=== PATIENT | female | born 1955 | race Caucasian/White ===

== ENCOUNTER 2016-04-25 23:38 | Inpatient (IN) | payer BC ==
[~2016-04-25] VITALS: Ht 167.6 cm; Wt 82.1 kg
--- NOTE | ~2016-04-25 | DS ---
PATIENT'S NAME: ROSY MAGALLANES [facility] AGE: 60 Y [address] ROOM: [address] [address] LOCATION: [facility] [place] ADMIT DATE: 04/26/2016 Discharge Summary DISCHARGE DATE: 04/30/2016 FAMILY PHYSICIAN: Sierra Burns MD ATTENDING PHYSICIAN: Alexis Ascencio DIAGNOSES: 1. Diverticulitis with perforation and free fluid in the pelvis. 2. History of hypothyroidism. 3. History of hypertension. 4. History of hyperlipidemia. 5. History of depression. SUMMARY: Ms. Rosy Magallanes is a 60-year-old female who presented with a 1-day history of lower abdominal pain. The patient presented to an outside hospital where a CT scan was done. This showed significant free fluid present in the pelvis with free air noted throughout the abdomen, with the largest collection noted in the midline lower abdomen. Pancolonic diverticulosis was present. The distal rectosigmoid colon demonstrated significant surrounding inflammatory stranding with free fluid and large foci of adjacent extraluminal air. The appendix was normal. Incidental cholelithiasis was also noted. The patient was transferred to [facility] where she was initially evaluated by Chiara Coto, General Surgery. She was admitted to the neurotrauma unit where vital signs were checked every hour. She was kept n.p.o. An NG tube was placed to suction. She was kept at bedrest. Lovenox was ordered for DVT prophylaxis. Dilaudid was ordered for pain. Levaquin and Flagyl for antibiotics. On April 27, the patient was doing much better. She was passing some gas and felt less bloated. She was afebrile. White blood cell count was 11.2. The NG tube was removed. She was allowed activity as tolerated. She was started on sips of clear liquids and advanced to clear liquid diet as tolerated. Physical Therapy was consulted for mobility issues with osteoarthritis in the knee. Drexel was ordered for pain control. On April 28, the patient was feeling better, but was nauseated. She was still afebrile. She continued on clear liquids until April 29 when she was advanced to full liquids. The nausea was better at that point in time. Her IV was saline locked. She was advanced to regular diet later that day. On April 30, the patient was doing fine. She was tolerating oral intake. She had 3 bowel movements along with passing gas. She was afebrile. Vital signs were stable. White blood cell count was down to 6.8. Arrangements were made for the patient to discharge from the hospital. There was a snowstorm that day, and assistance was given to help arrange for motel desired. DISCHARGE INSTRUCTIONS: Include no restrictions on diet. No restrictions on activity. She will follow up with Dr. Zheng in 1 to 2 weeks. She is instructed to see a physician for increased abdominal pain or fever. PATIENT'S NAME: ROSY MAGALLANES [facility] AGE: 60 Y [address] ROOM: [address] [address] LOCATION: [facility] [place] ADMIT DATE: 04/26/2016 Discharge Summary DISCHARGE DATE: 04/30/2016 FAMILY PHYSICIAN: Sierra Burns MD ATTENDING PHYSICIAN: Alexis Ascencio DISCHARGE MEDICATIONS: Include continuing home medicines of: 1. Norvasc 2.5 mg p.o. daily. 2. Levothroid 75 mcg p.o. daily. 3. Cozaar 50 mg p.o. twice daily. 4. Pravachol 20 mg p.o. daily. 5. Zolpidem ER 12.5 mg p.o. q.h.s. 6. Tylenol Extra Strength 1000 mg p.o. q.6 hours p.r.n. pain. 7. Advil 800 mg every 12 hours p.r.n. pain. 8. Flonase 2 sprays twice daily. 9. Sertraline 50 mg p.o. q.h.s. 10. Theragran-M one tablet p.o. daily. 11. Artificial Tears one drop ophthalmic as needed. 12. Prescription was written for Levaquin 750 mg 1 p.o. q.24 hours x7 days and Flagyl 500 mg 1 p.o. q.8 hours x7 days. 13. Drexel 5/325 one to two p.o. q.4 hours p.r.n. pain, dispensing 20, with no refills. For specifics on day-to-day care, please refer to the hospital chart. JENNIFER DAIGLE MD KDK/chrisl /[id number] d: 05/05/16 1042 t: 06/03/16 1033, DISCHARGE SUMMARY
--- NOTE | ~2016-04-25 | HP ---
PATIENT'S NAME: ANA [facility] AGE: 60 Y [address] ROOM: [address] [place] [address] LOCATION: [facility] ADMIT DATE: 04/26/2016 History & Physical DISCHARGE DATE: FAMILY PHYSICIAN: PHYSICIAN, UNKNOWN ATTENDING PHYSICIAN: Dhruv HERNANDEZ DATE OF SERVICE: 04/26/2016 CHIEF COMPLAINT: Abdominal pain. HISTORY OF PRESENT ILLNESS: The patient is a 60-year-old female with 1 day history of lower abdominal pain. She presented to an outside hospital and was diagnosed with perforated diverticulitis. The patient was then transferred to [facility] for evaluation. The patient denies any fever, nausea, or vomiting. The patient has no previous history of diverticulitis. REVIEW OF SYMPTOMS: The rest of the 13-point review of symptoms was negative other than what is listed in the HPI. PAST MEDICAL HISTORY: 1. Hypothyroidism. 2. Hypertension. 3. Osteoarthritis. 4. Hyperlipidemia. 5. Depression. PREVIOUS SURGICAL HISTORY: 1. Total vaginal hysterectomy. 2. Wrist surgery. MEDICATIONS: 1. Synthroid. 2. Pravastatin. 3. Losartan. 4. Ambien. 5. Zoloft. 6. Amlodipine. ALLERGIES: NO KNOWN DRUG ALLERGIES. SOCIAL HISTORY: No tobacco, rare EtOH, no illicit drugs. PATIENT'S NAME: ROSY GLASGOW [facility] AGE: 60 Y [address] ROOM: [id number] [place], [place] [address] LOCATION: [facility] ADMIT DATE: 04/26/2016 History & Physical DISCHARGE DATE: FAMILY PHYSICIAN: PHYSICIAN, UNKNOWN ATTENDING PHYSICIAN: Dhruv HERNANDEZ FAMILY HISTORY: The patient denies any significant history. PHYSICAL EXAMINATION: VITAL SIGNS: Pulse 87, blood pressure 134/98, saturating 98% on room air. ABDOMINAL EXAM: Soft, no distension, tenderness to palpation in the lower abdomen, no generalized peritoneal signs. LABORATORY STUDIES: White blood cell count of 13,000. Glucose 108. Total bilirubin 1.1. Urinalysis: Positive for wbc's, rbc's, 1+ bacteria. CT scan of the abdomen and pelvis from outside facility: Positive free intraperitoneal air with minimal free fluid versus early abscess formation in the pelvis. ASSESSMENT: Perforated diverticulitis, Hinchey class IIa. PLAN: [facility] vital signs. 2. N.p.o. 3. NG tube. 4. IV antibiotics. 5. Strict I's and O's. MD AYAAN DURAN/juvencio /[id number] D: [id number] T: [id number] HISTORY & PHYSICAL
--- NOTE | ~2016-04-25 | ER ---
PATIENT'S NAME: ROSY GLASGOW [facility] AGE: 60 Y [address] ROOM: [place] [address] LOCATION: [facility] ADMIT DATE: 04/26/2016 ER/Outpatient Report DISCHARGE DATE: FAMILY PHYSICIAN: PHYSICIAN, UNKNOWN ATTENDING PHYSICIAN: Dhruv RAY CHIEF COMPLAINT: Abdominal pain. HISTORY OF PRESENT ILLNESS: The patient states that she has been having some discomfort since , but it got particularly bad today. Presented to the [facility] where CT scan revealed some free air in the abdomen and diverticulitis. The patient was transferred by ambulance for evaluation by general surgeon, Dr. Ray. She was evaluated in the ER based on the reports from the outside hospital to ensure adequate stabilization and need for possible operating room time. I saw her and evaluated her. She has a history of hypertension but no other significant issues. PAST MEDICAL HISTORY: Documented on the record and reviewed by me. SOCIAL HISTORY: Documented on the record and reviewed by me. MEDICATIONS: Documented on the record and reviewed by me. ALLERGIES: DOCUMENTED ON THE RECORD AND REVIEWED BY ME. REVIEW OF SYSTEMS: All systems were reviewed and negative except as noted in the HPI. PHYSICAL EXAMINATION: VITAL SIGNS: Blood pressure 134/98, pulse 98, respiratory rate is 26, temp 99.4, SpO2 is 98% on room air. Pain is rated 5/10. GENERAL: An age appropriate female, in no obvious pain or distress, but appears tired and uncomfortable, resting on the exam table. NEURO: She is awake and alert. She is appropriate. She moves all extremities to command. No asymmetry on exam. No focal deficits. HEENT: Normocephalic, atraumatic. Eyes are PERRL. Oropharynx is clear. NECK: Supple. Trachea is midline. CHEST: Heart is regular rate and rhythm with no obvious murmurs, borderline tachycardic. Lungs: Clear to auscultation bilateral. Slightly tachypneic. ABDOMEN: Slightly diffusely tender. No masses. No rebound. PATIENT'S NAME: ROSY GLASGOW [facility] AGE: 60 Y [address] ROOM: [place] [address] LOCATION: [facility] ADMIT DATE: 04/26/2016 ER/Outpatient Report DISCHARGE DATE: FAMILY PHYSICIAN: PHYSICIAN, UNKNOWN ATTENDING PHYSICIAN: Dhruv RAY BACK: Nontender. EXTREMITIES: Warm and well perfused with no edema. SKIN: Skin is grossly intact. LABORATORY DATA AND X-RAYS: Labs and x-rays from prior to arrival were reviewed. IMPRESSION: Diverticulitis with abdominal pain, free air in the abdomen. EMERGENCY DEPARTMENT COURSE: The patient was evaluated. Labs and imaging were reviewed from outside hospital. Dr. Ray evaluated the patient. The patient will be admitted to the general surgery staff, Dr. Ray, for observation in the setting of ruptured diverticulum with free intraabdominal air. She remained otherwise hemodynamically stable in the emergency department. She did not require any medications while in the emergency department, and rated her pain as a 5/10 and that was acceptable to her. She had no nausea or other symptoms. She did not require antibiotics as those were given prior to arrival. Please see Dr. Ray's H and P for further evaluation and details of the plan of care. MD KIMBERLY AGUSTIN/juvencio /[id number] d: 04/26/16 0218 t: 04/27/16 0013, OUTPATIENT REPORT
--- NOTE | 2016-04-26 06:53 | NUR ---
A&O x3. Pleasant and cooperative. NPO. IV fluids and antibiotics. SBA. Hourly vitals. NG tube to LIS. IV dilaudid for pain. Zofran for nausea.
--- NOTE | 2016-04-26 07:06 | NUR ---
Patient arrived from ED at 0100 via cart. Patient pleasant and cooperative. NS infusing in LAC IV site. IV in right FA SL. VSS. Dr. Ray admitting physicain. Admitting diagnosis ruptured diverticuli.
[2016-04-26] MEDS ORDERED: NORVASC2.5 MG PO (08:20)
[2016-04-26] MEDS ORDERED: COZAAR50 MG PO (08:21)
[2016-04-26] MEDS ORDERED: LEVOTHROID(SYN75 MCG PO (08:21)
[2016-04-26] MEDS ORDERED: FLONASE 50 MCG/16 GM NOSE (08:21)
[2016-04-26] MEDS ORDERED: ZOLPIDEM TART12.5 MG PO (08:22)
[2016-04-26] MEDS ORDERED: ADVIL200 MG PO (08:22)
[2016-04-26] MEDS ORDERED: PRAVACHOL20 MG PO (08:22)
[2016-04-26] MEDS ORDERED: SERTRALINE HCL50 MG PO (08:22)
[2016-04-26] MEDS ORDERED: TYLENOL EXTRA500 MG PO (08:23)
[2016-04-26] MEDS ORDERED: THERAGRAN-M1 TAB PO (08:23)
[2016-04-26] MEDS ORDERED: ARTIFICIAL TEAR15 ML OPHTH (08:24)
[2016-04-26 08:36] LABS: HEMATOCRIT 38.9 % (33.0-46.0); HEMOGLOBIN 12.5 g/dL (10.0-15.0); MCH 27.7 pg (27.0-34.0); MCHC 32.1 gm/dL (32.0-36.5); MCV 86.3 fl (83.0-98.0); MPV 10.2 fl (9.4-12.4); PLATELET COUNT 203 K/uL (150-450); RBC 4.51 M/uL (3.50-5.50); RDW-CV 14.1 % (11.9-14.6); WBC 13.4 K/uL (4.0-11.0)
[2016-04-26 08:46] LABS: ALBUMIN 2.7 gm/dL (3.5-5.0); ANION GAP 14.7 (10.0-19.0); BLOOD UREA NITROGEN 14 mg/dL (6-24); CALCIUM 8.3 mg/dL (8.5-10.5); CHLORIDE 109 mMol/L (96-110); CO2 23 mMol/L (22-32); CREATININE 0.5 mg/dL (0.5-1.1); ESTIMATED GFR (MDRD EQUATION) > 60; PHOSPHORUS 2.3 mg/dL (2.5-4.9); POTASSIUM 3.7 mMol/L (3.7-5.1); SODIUM 143 mMol/L (135-145)
[2016-04-26 09:05] LABS: BANDED NEUTROPHIL # 1.9 K/uL (0.0-0.1); BANDED NEUTROPHILS % 14 %; LYMPHOCYTE # 0.3 K/uL (0.8-4.0); LYMPHOCYTE % 2 %; MONOCYTE # 0.1 K/uL (0.0-1.0); SEGMENTED NEUTROPHIL # 11.1 K/uL (1.8-7.8); SEGMENTED NEUTROPHIL % 83 %
--- NOTE | 2016-04-26 12:17 | NUR ---
1040 Introduced self and CM role to Zena and her son from [place]. Zena states that she lives at home with her in [place]. It is her goal to return home when she is medically cleared to do so. Doesn't use any DME at baseline and denies the need for any upon dismissal. Zena does her own medications at home and states she will continue to do so when she is dismissed. Son states that he is staying here while his mom is at the hospital. I did provide him with resources to get a room at [facility] at discounted rates. Also told him about the [facility] as well. Zena is still on IV Abxs and has an NG tube in right now, so dismissal most likely won't be a few days, but she does plan to go home upon dismissal. Per nursing, IV Abxs will most likely be able to be switched to orals upon dismissal. Family will transport her back home when ready. No other questions, needs or concerns. Will continue to follow and assist.
--- NOTE | 2016-04-26 16:18 | NUR ---
A&O. VSS. NG TO LIS [place]. LS CLEAR. CSM WNL. VD'S WELL. SBA. INT ATBX L WRIST SL R AC NS @125. PAIN CONTROLLED WITH IV DIAUDID. PLAN IS CONTROL WITH TBX VS SX THEN HOME
--- NOTE | 2016-04-27 04:29 | NUR ---
Significant Event: A&Ox3, VSS on room air. NG to left nare with intermittent low suction, 100mls out. NPO with ice chips/sips. Hypoactive bowel sounds, patient started passing gas this shift. Dilaudid 2mg IV for pain control. Transfers with SBA to BSC. NS at 125ml/hr into left AC IV with no complications. Pleasant and cooperative with cares. Follow up: Continue with plan of care.
[2016-04-27 05:13] LABS: HEMATOCRIT 36.9 % (33.0-46.0); HEMOGLOBIN 11.9 g/dL (10.0-15.0); MCH 28.2 pg (27.0-34.0); MCHC 32.2 gm/dL (32.0-36.5); MCV 87.4 fl (83.0-98.0); MPV 9.9 fl (9.4-12.4); PLATELET COUNT 215 K/uL (150-450); RBC 4.22 M/uL (3.50-5.50); RDW-CV 14.2 % (11.9-14.6); WBC 11.2 K/uL (4.0-11.0)
[2016-04-27 05:25] LABS: ALBUMIN 2.3 gm/dL (3.5-5.0); ANION GAP 14.7 (10.0-19.0); BLOOD UREA NITROGEN 16 mg/dL (6-24); CALCIUM 8.3 mg/dL (8.5-10.5); CHLORIDE 109 mMol/L (96-110); CO2 21 mMol/L (22-32); CREATININE 0.5 mg/dL (0.5-1.1); ESTIMATED GFR (MDRD EQUATION) > 60; PHOSPHORUS 2.2 mg/dL (2.5-4.9); POTASSIUM 3.7 mMol/L (3.7-5.1); SODIUM 141 mMol/L (135-145)
[2016-04-27 05:42] LABS: BANDED NEUTROPHIL # 2.8 K/uL (0.0-0.1); BANDED NEUTROPHILS % 25 %; LYMPHOCYTE # 0.2 K/uL (0.8-4.0); LYMPHOCYTE % 2 %; SEGMENTED NEUTROPHIL # 8.2 K/uL (1.8-7.8); SEGMENTED NEUTROPHIL % 73 %
--- NOTE | 2016-04-27 17:40 | NUR ---
A&OX3. VSS. SBA. All lung bueno clear and diminished. 94-95% RA. NG d/c this am. Pt tolerating clear liquids well. L) AC IV is ecchymotic and infusing NS at 75ml. R) Forearm IV saline locked. Flushes well with no blood return.Active bowel sounds. Patient is passing gas but has not had a BM since 04/25. [place] given for pain control. Pleasant and cooperative with cares.
--- NOTE | 2016-04-28 05:31 | NUR ---
NEURO: A&O x 3. Pleasant and cooperative with cares. CARDIO: Tele. Some hypertensive BPs last night, follow ups WNL. RESP: Clear. RA. GI/: Liquid diet. No nausea. Voiding well. IV: NS@ 75. ACTIVITY: SBA. PAIN: [place] given x 1 last night. Refused it this morning at 0515, stating she really wasn't having any pain. PLAN: Discharge to home when appropriate.
--- NOTE | 2016-04-28 17:30 | NUR ---
Significant Event: vss. no fever. alert and oriented times 3. zofran twice this shift. patient would like to try and take zorfran around 0600 tomorrow to see if that will prevent the nausea she gets in the morning. around 1630 patient started to feel poorly and when up to bathroom was a little shakey. vss were stable and no fever. ambulated in drake multiple times this shift Follow up: monitor
--- NOTE | 2016-04-28 22:08 | NUR ---
Patient is alert and oriented x 3. VSS on 1L of O2. Up with stand by assist to bathroom. Denies any numbess or tingling. Equal strength throughout. PERRLA. Voiding well. No BM since 04/25. Dilaudid given for headache last at 1804, relief noted. Right forearm IV, saline locked. Left AC IV with NS running at 75 ml/hr. Receiving intermittent IV antibiotics. Patient is pleasant and cooperative with cares. Patient transferred to [facility] from [facility] at 2200.
--- NOTE | 2016-04-29 04:18 | NUR ---
Significant Event: Patient alert and oriented X4. Up with stand by assist. Voiding well. IV to L) AC running NS at 75ml. Denies need for pain/nausea meds. Would like some early in AM before shift change. Passing gas. No BM yet. ON clear liquid diet. Patient transferred from NTU at 2210 this shift. Has chronic knee pain in R) knee. Very pleasant. Cooperative with cares. Reciveing IV antibiotics Follow up:
--- NOTE | 2016-04-29 11:34 | NUR ---
I have examined the student charting and find it acceptable. MITCHELL Emanuel
--- NOTE | 2016-04-29 18:46 | NUR ---
AAOx3. Cooperative with cares. Up independently in room and hallway. Bilat IVs s/l'd w/intermittent Abx. Tolerating regular soft diet well. VSS, though hypertensive. Afebrile, denies N/V/D. On RA. Had BMs x2 today. Tylenol given for c/o knee pain for chronic discomfort. at .
--- NOTE | 2016-04-30 04:35 | NUR ---
Significant Event: Pt alert an dOriented x3. Cooperative with cares. Independent in room. 1 BM this shift. Passing gas through out the shift. IV antibiotics. IV's SL. tolerating soft diet. VSS. RA. Denies any nausea. [place] given x1 with relief. encourage to ambulate. Follow up:
[2016-04-30 05:29] LABS: BASOPHIL % 0.3 %; EOSINOPHIL # 0.1 K/uL (0.0-0.5); EOSINOPHIL % 1.3 %; HEMATOCRIT 36.2 % (33.0-46.0); HEMOGLOBIN 11.9 g/dL (10.0-15.0); IMMATURE GRANULOCYTE # 0.1 K/uL (0.0-0.3); IMMATURE GRANULOCYTE % 1.5 %; LYMPHOCYTE # 0.9 K/uL (0.8-4.0); LYMPHOCYTE % 12.9 %; MCH 27.5 pg (27.0-34.0); MCHC 32.9 gm/dL (32.0-36.5); MCV 83.6 fl (83.0-98.0); MONOCYTE # 0.6 K/uL (0.0-1.0); MONOCYTE % 9.4 %; MPV 9.3 fl (9.4-12.4); NEUTROPHIL # (ANC) 5.1 K/uL (1.8-7.8); NEUTROPHIL % 74.6 %; NRBC % 0 /100WBC (0-0.00); RBC 4.33 M/uL (3.50-5.50); RDW-CV 13.7 % (11.9-14.6); WBC 6.8 K/uL (4.0-11.0)
[2016-04-30 05:35] LABS: PLATELET COUNT 276 K/uL (150-450)
[2016-04-30] MEDS ORDERED: LEVAQUIN 750 M750 MG PO (08:07)
[2016-04-30] MEDS ORDERED: NORCO 5-325 TA1 EACH PO (08:08)
[2016-04-30] MEDS ORDERED: FLAGYL500 MG PO (08:08)
--- NOTE | 2016-04-30 11:32 | NUR ---
A - PT SCREENED LOS. ADMITTED W/ RUPTURED DIVERTICULI. HT: 66" WT: 181# BMI: 29.3 LABS: ALB 2.3, PHOS 2.2 MEDS: SYNTHROID, LEVAQUIN, FLAGYL, NAUSEA DIET: SOFT. INTAKE: REF-100% (AVG ~44%) NEEDS: 2478-0551 KCAL (20-25 KCAL/KG), 82-98 G PRO (1-1.2 G/KG), 2460 ML FLUID (30 ML/KG) D - INADEQUATE NUTRIENT INTAKE R/T DECREASED APPETITE, ALTERED GI FUNCTION AEB INTAKE RECORD, RUPTURED DIVERTICULI I - GOAL FOR INTAKE 50-100% BY NEXT ASSESSMENT. WILL ADD ENSURE BID TO INC NUTRIENT INTAKE. M/E - WILL MONITOR INTAKE F/U IN 4-5 DAYS.
--- NOTE | 2016-04-30 12:00 | NUR ---
Spoke with patient and . She is discharging today. They have decided due to weather and road conditions to stay in [facility]. Gave them a discount card for [place]. has his semi here and does not have a passenger seat as he has made a "mini kitchen" in his truck. Gave them the phone number for [facility]. Told them I don't think the [facility] has a shuttle service, but they can ask when they call for a room. She denies any discharge needs at this time.
--- NOTE | 2016-04-30 12:18 | NUR ---
DISCHARGE: Pt. was explained discharge instructions, educated on diverticulitis, and new medications: Flagyl, [place], & Levaquin. Verbalized understanding of teaching. No questions or concerns. Left with all belongings and prescriptions. Taken to front door by aide. Taken by [facility] to drop off prescriptions at [facility] will deliver later this afternoon to hotel patient is staying at. Patient's friend will come cigar packer and picker patient and drive her home tomorrow when weather is more amenable.
== END 2016-04-30 12:15 | disposition disaster alternative care site (69) | DRG 392 ==
LOC: GMED 23:38 → GMSU 04-26 00:18 → GNTU 04-26 00:18 → GMSU 04-26 00:18 → GMED 04-28 22:34 → GMSU 04-30 12:15
PROVIDERS: Physician Assistant; ADMIT Emergency Medicine
DX: K57.20 Diverticulitis of large intestine with perforation and abscess without bleeding (principal); I10 Essential (primary) hypertension; E03.9 Hypothyroidism, unspecified; E78.5 Hyperlipidemia, unspecified; F32.9 Major depressive disorder, single episode, unspecified
CPT/HCPCS: J1170; J1650; J1956; J2405; J7030; J7050

== ENCOUNTER 2016-09-21 15:00 | Inpatient (IN) | payer BC ==
[~2016-09-21] VITALS: Ht 167.6 cm; Wt 81.2 kg
--- NOTE | ~2016-09-21 | DS ---
PATIENT'S NAME: ROSY GLASGOW [facility] AGE: 61 Y [address] ROOM: [place] [address] LOCATION: [facility] ADMIT DATE: 10/11/2016 Discharge Summary DISCHARGE DATE: 10/13/2016 FAMILY PHYSICIAN: Sierra Burns MD ATTENDING PHYSICIAN: Montez Bartholomew PRIMARY DIAGNOSIS: Degenerative joint disease of the right knee. SECONDARY DIAGNOSES: 1. Hypertension. 2. History of diverticulitis. 3. Hypercholesterolemia. 4. Hypothyroidism. PROCEDURE PERFORMED: Right total knee arthroplasty. HISTORY: The patient is a 61-year-old female, who presents with advanced right knee degenerative joint disease and associated severely compromised activities of daily living. The patient has decided to proceed with total knee arthroplasty after having been thoroughly counseled regarding the risks, benefits, limitations, and alternatives. Please refer to the outpatient clinic notes and admission history and physical for this patient. HOSPITAL COURSE: The patient underwent a right total knee arthroplasty on 10/11/2016 without complications. Spinal anesthesia plus adductor canal block plus periarticular local anesthesia was utilized. The patient received 24 hours of perioperative prophylactic antibiotics and remained hemodynamically stable, neurovascularly intact throughout the entire hospital course. The postoperative prophylactic deep venous thrombosis prophylaxis consisted of Xarelto, early mobilization, and pneumatic compression devices. Daily physical therapy for gait training, transfer training, range of motion and quadriceps, isometric exercises were received. The patient progressed well in physical therapy. On the date of discharge, 10/13/2016, the incision at the knee was healing well and showed no signs of infection. DISPOSITION: Home. DISCHARGE ACTIVITY: The patient is to bear weight as tolerated with range of motion and quadriceps isometric exercises as instructed. The operative extremity is to be elevated at least 90% of the day. There is to be sterile 4x4 gauze dressings to the incision daily. Dr. Bartholomew is to be notified immediately if there is any increased pain, fevers, chills, erythema, or drainage. DISCHARGE MEDICATIONS: PATIENT'S NAME: ROSY GLASGOW [facility] AGE: 61 Y [address] ROOM: [place] [address] LOCATION: [facility] ADMIT DATE: 10/11/2016 Discharge Summary DISCHARGE DATE: 10/13/2016 FAMILY PHYSICIAN: Sierra Burns MD ATTENDING PHYSICIAN: Montez Bartholomew 1. Xarelto 10 mg, 1 tablet daily for 12 days for postoperative DVT prophylaxis. 2. Hydromorphone 2 mg 1 to 2 tablets p.o. every 4 hours p.r.n. for pain. 3. Diazepam 5 mg 1/2 to 1 tablet p.o. every 6 hours p.r.n. for muscle spasms. 4. She was then instructed to continue all her other pre-admission medications as instructed by her Internal Medicine doctor. FOLLOWUP: Followup appointment is to be with Dr. Bartholomew's office on 10/18/2016 for her initial postoperative evaluation with x-rays and staple removal of the right knee at that time. MICHAEL GAONA PA-C FOR MONTEZ BARTHOLOMEW MD SMW/modl /[id number] d: 10/23/162008 t: 10/25/16 1056, DISCHARGE SUMMARY
--- NOTE | ~2016-09-21 | OR ---
PATIENT'S NAME: ROSY MAGALLANES [facility] AGE: 61 Y [address] ROOM: [place] [address] LOCATION: [facility] ADMIT DATE: 10/11/2016 OR/Procedure Report DISCHARGE DATE: FAMILY PHYSICIAN: Sierra Burns MD ATTENDING PHYSICIAN: MONTEZ BARTHOLOMEW SURGEON: Montez Bartholomew MD CAREER DEVELOPMENT COORDINATOR/TEACHER: 1. REYNALDO Blackmon. 2. Timothy Segura CST/CLEARANCE REPRESENTATIVE. DATE OF PROCEDURE: 10/11/2016 PREOPERATIVE DIAGNOSIS: Degenerative joint disease, right knee. POSTOPERATIVE DIAGNOSES: 1. Degenerative joint disease, right knee. 2. Proliferative synovitis. OPERATIONS: 1. Right total knee arthroplasty with computer navigation. 2. Extensive synovectomy. ANESTHESIA: Spinal anesthesia plus adductor canal block plus periarticular local anesthesia (ropivacaine with epinephrine and Toradol). ESTIMATED BLOOD LOSS: Less than 10 mL. DRAIN: None. SPECIMEN: None. COMPLICATIONS: None. IMPLANT SYSTEM: [employer]. 1. Size 3 right posterior stabilized femoral component. 2. Size 2 universal modular tibial baseplate. 3. A 13 mm posterior stabilized size 2 X3 tibial polyethylene insert. 4. A 29 mm oval X3 patellar component. INDICATIONS FOR SURGERY: Rosy Magallanes is a 61-year-old female who presents with advanced right knee degenerative joint disease and associated severely compromised activities of daily living. The patient has decided to proceed with knee replacement after having been thoroughly counseled regarding the associated risks, benefits, and limitations. We have specifically reviewed the risks and implications of infection, deep venous thrombosis, pulmonary embolism, mortality, neurovascular complications, blood transfusion (and associated potential for disease transmission or transfusion reaction), PATIENT'S NAME: ROSY MAGALLANES [facility] AGE: 61 Y [address] ROOM: [place] [address] LOCATION: [facility] ADMIT DATE: 10/11/2016 OR/Procedure Report DISCHARGE DATE: FAMILY PHYSICIAN: Sierra Burns MD ATTENDING PHYSICIAN: MONTEZ BARTHOLOMEW stiffness, instability, mechanical deterioration of the components (due to wear and or loosening), and the potential need for revision. We have also emphasized the importance of active involvement and compliance with post- operative physical therapy as a means of optimizing range of motion and functional recovery. Informed consent has been granted. DESCRIPTION OF PROCEDURE: The patient was positioned supine after administration of anesthesia and prophylactic antibiotics. A well-padded pneumatic tourniquet was placed around the right proximal thigh, and the right lower extremity was prepped and draped with vigilant sterile technique. The patient's name as well as the intended operative side and procedure were confirmed with a verbal time-out involving myself, the circulating nurse, the scrub nurse, and the anesthesiologist. Examination under anesthesia demonstrated a large effusion. There was no erythema. There was no abnormal warmth. There were no active skin lesions or masses. Range of motion under anesthesia was from full extension to 130 degrees of flexion. There was no ligamentous insufficiency. The right lower extremity was elevated and exsanguinated with an Esmarch wrap, and the pneumatic tourniquet was inflated to 300mmHg. The knee was approached through a longitudinal midline incision. A medial parapatellar arthrotomy was performed and the patella was everted. Examination of the joint space demonstrated a large amount of benign-appearing translucent synovial fluid. There was extensive significantly proliferative synovitis. An extensive synovectomy was performed. The cruciate ligaments were intact. There was a small osteophyte at the lateral aspect of the intercondylar notch. There were no loose bodies. The lateral meniscus was intact. There was moderate inner perimeter tearing of the remnant of the medial meniscus. There was full- thickness loss of articular cartilage involving 70% of the medial femoral condyle and the anteromedial 60% of the medial tibial plateau. There was a 1 cm diameter region of full-thickness articular cartilage loss at the central aspect of the lateral femoral condyle. There was a 1 cm diameter region of high-grade partial-thickness articular cartilage loss at the medial aspect of the lateral tibial plateau. There were moderate grade 3 degenerative changes at the medial half of the patella and the medial half of the femoral trochlea. There were small osteophytes at the superior and inferior margins of the patella. There was a small osteophyte at the medial margin of the femoral trochlea. There was a moderate-sized osteophyte at the lateral margin of the femoral trochlea. There was a large osteophyte at the medial femoral condyle. There was a small osteophyte at the medial tibial plateau. There were small osteophytes at the lateral femoral condyle and lateral tibial plateau. Remnants of the menisci and cruciate ligaments were excised. [employer] PATIENT'S NAME: ROSY MAGALLANES [facility] AGE: 61 Y [address] ROOM: [id number] [place], [place] [id number] LOCATION: [facility] ADMIT DATE: 10/11/2016 OR/Procedure Report DISCHARGE DATE: FAMILY PHYSICIAN: Sierra Burns MD ATTENDING PHYSICIAN: MONTEZ BARTHOLOMEW computer navigation femoral tracker was pinned in place at the distal aspect of the femoral trochlea. Absence of motion between the femur and the tracking device was confirmed manually and visually. Femoral osseous landmarks were obtained in order to calibrate the computer navigation system. Landmarks included the center of rotation of the ipsilateral hip, the center-point of the distal femur, the femoral AP axis, 57 points on the medial femoral condyle articular surface, and 57 points on the lateral femoral condyle articular surface. [employer] computer navigation system was subsequently utilized to position the distal femoral resection block such that the distal femoral resection was performed perfectly perpendicular to the femoral mechanical axis. The distal femoral resection was performed with a [employer] oscillating saw. [employer] computer navigation tibial tracker was pinned in place at the anterior aspect of the tibial plateau. Absence of motion between the tibia and the tracking device was confirmed manually and visually. Tibial osseous landmarks were obtained in order to calibrate the computer navigation system. Landmarks included the center-point of the tibial plateau, the AP tibial axis, 57 points on the medial tibial plateau articular surface, 57 points on the lateral tibial plateau articular surface, the medial malleolus, and the lateral malleolus. [employer] computer navigation system was subsequently utilized to position the proximal tibial resection block such that the proximal tibial resection was performed perfectly perpendicular to the tibial mechanical axis. The proximal tibial resection was performed with a [employer] oscillating saw. Perpendicularity of the tibial resection with respect to the tibial shaft axis was reconfirmed by inserting a spacer- block attached to an extramedullary guide venkat. External rotation of the anterior and posterior femoral resections was set parallel to the epicondylar axis and carefully adjusted in order to create a rectangular flexion gap. The box resection was performed with a reciprocating saw. Anterior and posterior chamfer resections were performed with the oscillating saw. Posterior condyle osteophytes were excised with an osteotome. All other osteophytes were excised with a rongeur. Resection of all remnants of the menisci was reconfirmed. Flexion and extension gaps were confirmed to be symmetric and well balanced with a spacer-block technique. The patella resection was performed with an oscillating saw such that the composite thickness of the reconstructed patella was equivalent to the thickness of the [place] patella. Patella tracking was optimal, and there was no need for a lateral retinacular release. All trial components were removed and all prepared osseous surfaces were thoroughly irrigated with pulsatile saline lavage and dried prior to cementing all three components in a single stage using [employer] Sim[employer] cement containing PATIENT'S NAME: ROSY MAGALLANES [facility] AGE: 61 Y [address] ROOM: [address] [address] LOCATION: [facility] ADMIT DATE: 10/11/2016 OR/Procedure Report DISCHARGE DATE: FAMILY PHYSICIAN: Sierra Burns MD ATTENDING PHYSICIAN: MONTEZ BARTHOLOMEW pre-mixed tobramycin. All extruded excess cement was removed. The entire joint space was thoroughly inspected and thoroughly irrigated with bacteriostatic pulsatile saline lavage to assure that there was no residual debris of any sort. Final range of motion was from full extension (with no passive hyperextension) to 130 degrees of flexion. Patella tracking was reconfirmed to be optimal. There was excellent anteroposterior stability at 90 degrees of flexion. There was less than 1 mm of medial lift-off to valgus stress in full extension. There was less than 1 mm of lateral lift-off to varus stress in full extension. The arthrotomy was closed with multiple simple and [id number] interrupted #1 Vicryl. Subcutaneous tissues were thoroughly re-irrigated with bacteriostatic pulsatile saline lavage. Subcutaneous tissues were re- approximated with simple buried interrupted #0 Vicryl sutures. The skin was closed with simple buried interrupted 2-0 Vicryl sutures followed by surgical eric. The dressing consisted of Xeroform gauze, 4x4 gauze, ABD pads and two 6-inch Eloy Wraps. There were no intra-operative complications. It should be noted that the physician's employment legal assistant played an active, integral role throughout this entire operation. By providing expert retraction, they greatly facilitated and expedited safe and effective exposure of the distal femur, proximal tibia and patella for preparation and implantation of the components. They were also actively involved in the patient's positioning, prepping and draping, as well as wound closure. MD JARAD ZAPATA/juvencio /[id number] d: 10/11/16 1203 t: 10/15/16 0752, OPERATIVE SUMMARY
[~2016-09-21 15:00] MED LIST: ADVIL200 MG PO; ARTIFICIAL TEAR15 ML OPHTH; COZAAR50 MG PO; FLAGYL500 MG PO; FLONASE 50 MCG/16 GM NOSE; LEVAQUIN 750 M750 MG PO; LEVOTHROID(SYN75 MCG PO; NORCO 5-325 TA1 EACH PO; NORVASC2.5 MG PO; PRAVACHOL20 MG PO; SERTRALINE HCL50 MG PO; THERAGRAN-M1 TAB PO; TYLENOL EXTRA500 MG PO; ZOLPIDEM TART12.5 MG PO
[2016-10-11] MEDS ORDERED: CYMBALTA60 MG PO (05:37)
[2016-10-11] MEDS ORDERED: PRILOSEC20 MG PO (05:38)
--- NOTE | 2016-10-11 14:17 | NUR ---
Significant Event: Pt up from PACU at 1015. VSS, CSM WNL. IV intact. Uses IS as instructed. Dressing to right knee, Eloy wrap, C/D/I. EZ wrap to knee. Voiding without difficulty, taking PO well. Concerned about her bowels, she was here about 3 months ago with Diverticulitis. Sam hose on. Pain well controlled with Dilaudid/Tylenol. Up with one assist, walker and gait belt. Ancef will be given at 1500. Last post operative vital sign due at 1900. Follow up:
--- NOTE | 2016-10-12 04:56 | NUR ---
Pt up with one assist. VSS. Dilaudid 2mg last at 0410. Dressing C/D/I. CSM's intact. No N/V.
--- NOTE | 2016-10-12 09:30 | NUR ---
Introduced self/role to patient. She lives in [place] with her , he is a dental laboratory assistant so will be gone. Their daughter is living at home and a granddaughter will be around to assist her as needed. She has all the DME she feels she will need. No barriers to going home. Added my name to her marker board. She plans to go home tomorrow.
--- NOTE | 2016-10-12 14:03 | NUR ---
Significant Event: AOx3. VSS. CSM WNL. Dressing C/D/I. Up with 1 assist with walker. Patient felt this morning that she wasn't empting her bladder completley. Bladder scanned less than 100ml after voiding. Dilaudid given for pain. Follow up:
--- NOTE | 2016-10-13 05:00 | NUR ---
Pt up one assist GBW. Dilaudid po last at 0430. VSS. Pt took ambien at bedtime. Dressing C/D/I. CSM's intact.
[2016-10-13] MEDS ORDERED: COLACE100 MG PO (10:26)
[2016-10-13] MEDS ORDERED: MIRALAX17 GM PO (10:30)
[2016-10-13] MEDS ORDERED: XARELTO10 MG PO (10:32)
[2016-10-13] MEDS ORDERED: VALIUM5 MG PO (10:33)
[2016-10-13] MEDS ORDERED: DILAUDID 2MG(HYD2 MG PO (10:34)
--- NOTE | 2016-10-13 19:13 | NUR ---
Pt discharged with family at 1610. She has been up and about with walker and standby assist. Pt has intact dry mepilex to knee. Ice to knee and legs elevated when not up. Pt has rated pain at 2-4 this shift. Pt takes dilaudid po for pain relief. She has normal CSM. She has good intake and output. She understands all discharge instructions including home meds. activity, exercises, wound care, when to see Dr and when to call doctor. She has all belongings. Discharged with daughter in stable condition.
== END 2016-10-13 16:17 | disposition disaster alternative care site (69) | DRG 470 ==
LOC: G3N 10-11 05:05
PROVIDERS: ADMIT Orthopaedic Surgery
PROC: 0SRC0J9 Replacement of Right Knee Joint with Synthetic Substitute, Cemented, Open Approach (ICD-10-PCS; principal; 2016-10-11)
PROC: XR2G021 Monitoring of Right Knee Joint using Intraoperative Knee Replacement Sensor, Open Approach, New Technology Group 1 (ICD-10-PCS; principal; 2016-10-11)
DX: M17.11 Unilateral primary osteoarthritis, right knee (principal); I10 Essential (primary) hypertension; E03.9 Hypothyroidism, unspecified; E78.00 Pure hypercholesterolemia, unspecified; G47.00 Insomnia, unspecified; M79.7 Fibromyalgia; Z86.718 Personal history of other venous thrombosis and embolism; Z79.01 Long term (current) use of anticoagulants
CPT/HCPCS: C1713; C1776; J0690; J1100; J1885; J2001; J2795; J7120

== ENCOUNTER → 2016-09-23 | Outpatient (CLI) | payer BC ==
[~2016-09-23] MED LIST changes: +COLACE100 MG PO; +CYMBALTA60 MG PO; +DILAUDID 2MG(HYD2 MG PO; +MIRALAX17 GM PO; +PRILOSEC20 MG PO; +VALIUM5 MG PO; +XARELTO10 MG PO
== END | disposition disaster alternative care site (69) ==
LOC: GNJRC 10:15
DX: Z01.812 Encounter for preprocedural laboratory examination (principal); M17.11 Unilateral primary osteoarthritis, right knee